=== PATIENT | female | born 1985 | race American Indian/Alaskan Native ===

== ENCOUNTER 2017-04-25 05:31 | Emergency (ER) | payer MEDICAID ==
--- NOTE | 2017-04-25 07:04 | XRay Report ---
FINAL REPORT EXAM: XR CHEST ROUTINE 2V HISTORY: cough TECHNIQUE: PA and lateral views of the chest were submitted. FINDINGS: The lungs are clear. The heart size is normal. Pleural fluid is not seen. The bones and soft tissues appear normal. IMPRESSION: Normal chest.
[2017-04-25] MEDS ORDERED: MOTRIN PO ONE (07:29)
[2017-04-25] MEDS ORDERED: TESSALON PERLES PO ONE (07:29)
--- NOTE | 2017-04-25 07:44 | Emergency Department Report ---
- General Chief Complaint: Upper Respiratory Infection Stated Complaint: COLD SX Time Seen by Provider: 04/25/17 07:29 Source: patient, family Mode of arrival: Ambulatory Limitations: No Limitations - History of Present Illness Initial Comments: This is a 31-year-old female nontoxic, well nourished in appearance, no acute signs of distress presents to the ED with c/o of productive cough, frontal sinus pain, rhinorrhea, nasal congestion x3 days. Patient describes productive cough as yellow mucus production. Patient agrees to sick contact with daughter with similar symptoms. Patient denies any recent travels, long car, recent hospital stays. Patient denies any calf pain or calf tenderness. Patient denies any chest pain, short of breath, fever, chills, nausea, vomiting, hemoptysis, numbness, tingling, headache or stiff neck. Allergies include codeine past medical history includes diabetes. MD Complaint: cough, rhinorrhea, nasal congestion, sinus pain -: days(s) (3) Severity: mild Severity scale (0 -10): 0 Consistency: constant Worsens With: nothing Context: sick contacts Associated Symptoms: rhinorrhea, nasal congestion, cough. denies: fever, chills , myalgias, diaphoresis, headache, sore throat, stiff neck, chest pain, shortness of breath, abdominal pain, nausea, vomiting, diarrhea, dysuria, rash, confusion, right sweats, weight loss, epistaxis, hoarseness, ear pain - Related Data Previous Rx's Medication Instructions Recorded Last Taken Type HYDROcodone/APAP 10-325 [[place] 1 each PO Q6HR PRN #20 tablet 04/08/14 Unknown Rx 10-325 mg TAB] Azithromycin [Zithromax Z-KADEN] 250 mg PO DAILY #6 tablet 07/29/14 Unknown Rx Benzonatate [Tessalon Perles] 100 mg PO Q8HR PRN #20 capsule 07/29/14 Unknown Rx Ibuprofen [Motrin 800 MG tab] 800 mg PO Q8H PRN #30 tablet 07/29/14 Unknown Rx Azithromycin [Zithromax TAB] 500 mg PO QDAY #5 tablet 01/23/15 Unknown Rx HYDROcodone/APAP 5-325 [[place] 1 each PO Q6HR PRN #12 tablet 01/23/15 Unknown Rx 5/325] Promethazine Dm [Phenergan Dm 5 ml PO Q6H PRN #120 ml 01/23/15 Unknown Rx 6.25/15 mg 5 ml] predniSONE [Deltasone] 20 mg PO TID #9 tab 01/23/15 Unknown Rx Dexamethasone [Decadron] 4 mg PO Q12H #8 tablet 01/26/15 Unknown Rx Ibuprofen [Motrin] 800 mg PO Q8HR PRN #30 tablet 01/26/15 Unknown Rx Pseudoephedrine (Nf) [Sudafed] 60 mg PO BID #20 tab 01/26/15 Unknown Rx traMADol [Ultram 50 MG tab] 50 mg PO Q6HR PRN #20 tablet 01/26/15 Unknown Rx Amoxicillin/K Clav Tab [Augmentin 1 tab PO Q12HR #20 tab 04/25/17 Unknown Rx 875 mg] Ibuprofen [Motrin] 600 mg PO Q8H PRN #30 tablet 04/25/17 Unknown Rx Allergies Allergy/AdvReac Type Severity Reaction Status Date / Time codeine AdvReac Unknown Verified 01/23/15 07:33 ED Review of Systems ROS: Stated complaint: COLD SX Other details as noted in HPI Constitutional: denies: chills, fever Eyes: denies: eye pain, eye discharge, vision change ENT: denies: ear pain, throat pain Respiratory: cough. denies: shortness of breath, wheezing Cardiovascular: denies: chest pain, palpitations Endocrine: no symptoms reported Gastrointestinal: denies: abdominal pain, nausea, diarrhea Genitourinary: denies: urgency, dysuria, discharge Musculoskeletal: denies: back pain, joint swelling, arthralgia Skin: denies: rash, lesions Neurological: denies: headache, weakness, paresthesias Psychiatric: denies: anxiety, depression Hematological/Lymphatic: denies: easy bleeding, easy bruising ED Past Medical Hx - Past Medical History Hx Hypertension: No Hx Diabetes: Yes (gestational) Hx Renal Disease: No Additional medical history: endometriosis. Uterine fibroids - Surgical History Additional Surgical History: laparscopic surgery for endometriosis. x1 - Social History Smoking Status: Never Smoker Substance Use Type: None - Medications Home Medications: Home Medications Medication Instructions Recorded Confirmed Last Taken Type HYDROcodone/APAP 10-325 [[place] 1 each PO Q6HR PRN #20 tablet 04/08/14 Unknown Rx 10-325 mg TAB] Azithromycin [Zithromax Z-KADEN] 250 mg PO DAILY #6 tablet 07/29/14 Unknown Rx Benzonatate [Tessalon Perles] 100 mg PO Q8HR PRN #20 capsule 07/29/14 Unknown Rx Ibuprofen [Motrin 800 MG tab] 800 mg PO Q8H PRN #30 tablet 07/29/14 Unknown Rx Azithromycin [Zithromax TAB] 500 mg PO QDAY #5 tablet 01/23/15 Unknown Rx HYDROcodone/APAP 5-325 [[place] 1 each PO Q6HR PRN #12 tablet 01/23/15 Unknown Rx 5/325] Promethazine Dm [Phenergan Dm 5 ml PO Q6H PRN #120 ml 01/23/15 Unknown Rx 6.25/15 mg 5 ml] predniSONE [Deltasone] 20 mg PO TID #9 tab 01/23/15 Unknown Rx Dexamethasone [Decadron] 4 mg PO Q12H #8 tablet 01/26/15 Unknown Rx Ibuprofen [Motrin] 800 mg PO Q8HR PRN #30 tablet 01/26/15 Unknown Rx Pseudoephedrine (Nf) [Sudafed] 60 mg PO BID #20 tab 01/26/15 Unknown Rx traMADol [Ultram 50 MG tab] 50 mg PO Q6HR PRN #20 tablet 01/26/15 Unknown Rx Amoxicillin/K Clav Tab [Augmentin 1 tab PO Q12HR #20 tab 04/25/17 Unknown Rx 875 mg] Ibuprofen [Motrin] 600 mg PO Q8H PRN #30 tablet 04/25/17 Unknown Rx ED Physical Exam - General Limitations: No Limitations General appearance: alert, in no apparent distress - Head Head exam: Present: atraumatic, normocephalic - Eye Eye exam: Present: normal appearance, PERRL, EOMI Pupils: Present: normal accommodation - ENT ENT exam: Present: normal exam, normal orophraynx, mucous membranes moist, TM's normal bilaterally, normal external ear exam - Neck Neck exam: Present: normal inspection, full ROM. Absent: tenderness, meningismus, lymphadenopathy, thyromegaly - Respiratory Respiratory exam: Present: normal lung sounds bilaterally. Absent: respiratory distress, wheezes, rales, rhonchi, stridor, chest wall tenderness, accessory muscle use, decreased breath sounds, prolonged expiratory - Cardiovascular Cardiovascular Exam: Present: regular rate, normal rhythm, normal heart sounds. Absent: irregular rhythm, systolic murmur, diastolic murmur, rubs, gallop - GI/Abdominal GI/Abdominal exam: Present: soft, normal bowel sounds. Absent: distended, tenderness, guarding, rebound, rigid, diminished bowel sounds - Rectal Rectal exam: Present: deferred - Extremities Exam Extremities exam: Present: normal inspection, full ROM, normal capillary refill. Absent: tenderness, pedal edema, joint swelling, calf tenderness - Back Exam Back exam: Present: normal inspection, full ROM. Absent: tenderness, CVA tenderness (R), CVA tenderness (L), muscle spasm, paraspinal tenderness, vertebral tenderness, rash noted - Neurological Exam Neurological exam: Present: alert, oriented X3, CN II-XII intact, normal gait, reflexes normal - Psychiatric Psychiatric exam: Present: normal affect, normal mood - Skin Skin exam: Present: warm, dry, intact, normal color. Absent: rash - Other Other exam information: Frontal sinus tenderness. ED Course Vital Signs 04/25/17 04/25/17 04/25/17 05:42 06:23 07:45 Temperature 98.4 F 98.4 F 100.2 F H Pulse Rate 101 H 101 H 95 H Respiratory 18 18 Rate Blood Pressure 131/91 Blood Pressure 131/91 137/98 [Right] O2 Sat by Pulse 98 100 Oximetry 04/25/17 07:46 Temperature Pulse Rate Respiratory 18 Rate Blood Pressure Blood Pressure [Right] O2 Sat by Pulse Oximetry - Reevaluation(s) Reevaluation #1: 04/25/17 07:42 Patient is speaking in full sentences with no signs of distress noted. ED Medical Decision Making - Medical Decision Making This is a 31-year-old female that presents with upper respiratory infection and sinusitis. Patient is stable and was examined by me. Chest x-ray has been obtained and dictated by radiologist with normal exam. Patient is notified of x -ray results with no questions noted. Due to patient having symptoms of upper respiratory infection and worsening I will treat patient with augmentin. Patient is above the >72 hour window for tamiflu. Patient was instructed to increase hydration, rest and take Motrin for fever episodes. Patient received motrin and tesslone perrls in the ED. Patient stated she has to go to work and cant wait to have vitals repeated to normal. Patient signed AMA form but I will still treat patient with augmetin. Patient was instructed Follow-up with a primary care doctor in 3-5 days or if symptoms worsen and continue return to emergency room as soon as possible. At time time of signing AMA, the patient does not seem toxic or ill in appearance. No acute signs of distress noted. Patient agrees to treatment plan of care. No further questions noted by the patient. Critical care attestation.: If time is entered above; I have spent that time in minutes in the direct care of this critically ill patient, excluding procedure time. ED Disposition Clinical Impression: Upper respiratory infection Qualifiers: URI type: unspecified URI Qualified Code(s): J06.9 - Acute upper respiratory infection, unspecified Sinusitis Qualifiers: Sinusitis location: frontal Chronicity: acute Recurrence: non-recurrent Qualified Code(s): J01.10 - Acute frontal sinusitis, unspecified Disposition: LEFT AGAINST MED ADVICE Is pt being admited?: No Does the pt Need Aspirin: No Condition: Stable Instructions: Amoxicillin/Clavulanate Potassium (By mouth), Sinusitis (ED), Upper Respiratory Infection (ED) Additional Instructions: Follow-up with a primary care doctor in 3-5 days or if symptoms worsen and continue return to emergency room as soon as possible. Increased rest, hydration and take Motrin for pain/fever. Prescriptions: Amoxicillin/K Clav Tab [Augmentin 875 mg] 1 tab PO Q12HR #20 tab Ibuprofen [Motrin] 600 mg PO Q8H PRN #30 tablet PRN Reason: Pain Referrals: PRIMARY MD ERI [Primary Care Provider] - 3-5 Days BETHANY MILLER MD [Staff Physician] - 3-5 Days [facility] [Outside] - 3-[address] [facility] [Outside] - 3-5 Days Forms: Work/School Release Form(ED), AMA Form
[2017-04-25 07:45] VITALS: BP 137/98
== END 2017-04-25 08:11 | disposition left against medical advice (07) ==
LOC: ED 05:31
DX: J06.9 Acute upper respiratory infection, unspecified (principal)
CPT/HCPCS: 71046

== ENCOUNTER 2017-06-12 07:16 | Emergency (ER) | payer MEDICAID ==
[2017-06-12 07:39] VITALS: BP 138/95
--- NOTE | 2017-06-12 08:29 | Emergency Department Report ---
- General Chief Complaint: Upper Respiratory Infection Stated Complaint: FLU LIKE SYMPTOMS/COUGH WITH CHEST PAIN Time Seen by Provider: 06/12/17 08:24 Source: patient Mode of arrival: Ambulatory Limitations: No Limitations - History of Present Illness Initial Comments: 32-year-old -[place] female comes in for complaint of cough for 1 week. She denies any fever chills no nausea no vomiting. She does admit to intermittent nasal congestion and sneezing and wheezing. Patient reports that she's tried taking [id number] Zyrtec Delisa's eyes all Claritin-D TheraFlu. Patient has no past medical history currently takes no medication or daily basis is allergic to codeine. MD Complaint: cough - Related Data Previous Rx's Medication Instructions Recorded Last Taken Type Benzonatate [Tessalon Perles] 100 mg PO Q8HR PRN #20 capsule 06/12/17 Unknown Rx Allergies Allergy/AdvReac Type Severity Reaction Status Date / Time codeine AdvReac Unknown Verified 01/23/15 07:33 ED Review of Systems ROS: Stated complaint: FLU LIKE SYMPTOMS/COUGH WITH CHEST PAIN Other details as noted in HPI Constitutional: denies: chills, fever Eyes: denies: eye pain, eye discharge, vision change ENT: denies: ear pain, throat pain Respiratory: cough, wheezing (not recently). denies: shortness of breath Cardiovascular: denies: chest pain, palpitations Endocrine: no symptoms reported Gastrointestinal: denies: abdominal pain, nausea, diarrhea Genitourinary: denies: urgency, dysuria, discharge Musculoskeletal: denies: back pain, joint swelling, arthralgia Skin: denies: rash, lesions Neurological: denies: headache, weakness, paresthesias Psychiatric: denies: anxiety, depression Hematological/Lymphatic: denies: easy bleeding, easy bruising ED Past Medical Hx - Past Medical History Previous Medical History?: Yes Hx Hypertension: No Hx Diabetes: Yes (gestational) Hx Renal Disease: No Additional medical history: endometriosis. Uterine fibroids - Surgical History Past Surgical History?: Yes Additional Surgical History: laparscopic surgery for endometriosis. x1 , Mass removalfrom left abd area - Social History Smoking Status: Never Smoker Substance Use Type: Alcohol - Medications Home Medications: Home Medications Medication Instructions Recorded Confirmed Last Taken Type Benzonatate [Tessalon Perles] 100 mg PO Q8HR PRN #20 capsule 06/12/17 Unknown Rx ED Physical Exam - General Limitations: No Limitations General appearance: alert, in no apparent distress - Head Head exam: Present: atraumatic, normocephalic - Eye Eye exam: Present: normal appearance - ENT ENT exam: Present: mucous membranes moist - Neck Neck exam: Present: normal inspection - Respiratory Respiratory exam: Present: normal lung sounds bilaterally. Absent: respiratory distress - Cardiovascular Cardiovascular Exam: Present: regular rate, normal rhythm. Absent: systolic murmur, diastolic murmur, rubs, gallop - GI/Abdominal GI/Abdominal exam: Present: soft, normal bowel sounds - Extremities Exam Extremities exam: Present: normal inspection - Back Exam Back exam: Present: normal inspection - Neurological Exam Neurological exam: Present: alert, oriented X3 - Psychiatric Psychiatric exam: Present: normal affect, normal mood - Skin Skin exam: Present: warm, dry, intact, normal color. Absent: rash ED Course Vital Signs 06/12/17 07:36 Temperature 98.4 F Pulse Rate 80 Respiratory 18 Rate Blood Pressure 138/95 O2 Sat by Pulse 98 Oximetry ED Medical Decision Making - Medical Decision Making Patient's been evaluated by this provider fast track. Patient has no fever cough that is dry. Discussed the patient placed on Tessalon Perles and for her to follow with her primary care provider if symptoms persist or gets worse. Patient verbalized understanding Critical care attestation.: If time is entered above; I have spent that time in minutes in the direct care of this critically ill patient, excluding procedure time. ED Disposition Clinical Impression: Cough Disposition: DC-01 TO HOME OR SELFCARE Is pt being admited?: No Does the pt Need Aspirin: No Condition: Stable Instructions: Antitussives (By mouth) Additional Instructions: Take cough medication as prescribed. If symptoms persist or gets worse follow- up with her primary care provider. Prescriptions: Benzonatate [Tessalon Perles] 100 mg PO Q8HR PRN #20 capsule PRN Reason: Cough Referrals: TRANG PIÑA MD [Referring] - 3-5 Days Forms: Work/School Release Form(ED)
== END 2017-06-12 08:57 | disposition home or self-care (01) ==
LOC: ED 07:16
DX: R05 Cough (principal); R09.81 Nasal congestion; R06.2 Wheezing; Z88.5 Allergy status to narcotic agent
CPT/HCPCS: 99282

== ENCOUNTER 2017-11-13 11:20 | Emergency (ER) | payer MEDICAID, OTHER ==
[2017-11-13 12:21] VITALS: BP 123/96
--- NOTE | 2017-11-13 14:18 | Emergency Department Report ---
Minor Respiratory - HPI Chief Complaint: Upper Respiratory Infection Stated Complaint: NECK,THROAT,HEAD PAIN Time Seen by Provider: 11/13/17 14:02 Duration: 3 Days Pain Location: Throat, Ear Severity: moderate Minor Respiratory: Yes Rhinorrhea, Yes Sore Throat, Yes Able to Tolerate Fluids , Yes Ear Pain, Yes Sick Contacts, No Cough, No Hemoptysis, No Chest Pain, No Shortness of Breath, No Fever Other History: This is a 32-year-old -[place] female presents with sore throat and congestion 3 days. 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 She started taking surtax with no improvement of symptoms. She also reports both ears clogged and achy. She went to her job this morning and they told her to get evaluated prior to return. She denies nausea or vomiting, fever, shortness of breath, chest pain, difficulty swallowing. ED Review of Systems ROS: Stated complaint: NECK,THROAT,HEAD PAIN Other details as noted in HPI Constitutional: denies: chills, fever ENT: ear pain, throat pain, congestion. denies: dental pain, hearing loss, epistaxis Respiratory: denies: cough, shortness of breath, wheezing Cardiovascular: denies: chest pain, palpitations Gastrointestinal: denies: abdominal pain, nausea, diarrhea Genitourinary: denies: urgency, dysuria, discharge Skin: denies: rash, lesions Neurological: denies: headache, weakness, paresthesias Psychiatric: denies: anxiety, depression ED Past Medical Hx - Past Medical History Hx Hypertension: No Hx Diabetes: No Hx Renal Disease: No Additional medical history: endometriosis. Uterine fibroids - Surgical History Additional Surgical History: laparscopic surgery for endometriosis. x1 , Mass removalfrom left abd area - Social History Smoking Status: Never Smoker Substance Use Type: Alcohol - Medications Home Medications: Home Medications Medication Instructions Recorded Confirmed Last Taken Type Benzonatate [Tessalon Perles] 100 mg PO Q8HR PRN #20 capsule 06/12/17 Unknown Rx Benzonatate [Tessalon Perle] 100 mg PO TID PRN #20 capsule 11/13/17 Unknown Rx Fluticasone [Flonase] 1 spray NS QDAY #1 bottle 11/13/17 Unknown Rx Lidocaine Viscous 2% 5 ml MM Q3H PRN #50 ml 11/13/17 Unknown Rx Minor Respiratory Exam - Exam General: Vital signs noted. No distress. Alert and acting appropriately. HEENT: Yes Pharyngeal Erythema (tonsils enlarged and erythematous w/o exudate), Yes Moist Mucous Membranes, Yes Rhinorrhea (turbinates mildly congested with clear discharge), No Pharyngeal Exudates, No Conjuctival Injection, No Frontal Tenderness, No Maxillary Tenderness Ear: Neither TM Bulge, Neither TM Erythema, Neither EAC Pain, Neither EAC Discharge Neck: Yes Supple, No Adenopathy Lungs: Yes Good Air Exchange, No Wheezes, No Ronchi, No Stridor, No Cough, No Labored Respirations, No Retractions, No Use of Accessory Muscles, No Other Abnormal Lung Sounds Heart: Yes Regular, No Murmur Abdomen: Yes Normal Bowel Sounds, No Tenderness, No Peritoneal Signs Skin: No Rash, No Edema Neurologic: Alert and oriented, no deficits. Musculoskeletal: Unremarkable. ED Course Vital Signs 11/13/17 12:18 Temperature 98.9 F Pulse Rate 74 Respiratory 18 Rate Blood Pressure 123/96 O2 Sat by Pulse 100 Oximetry ED Medical Decision Making - Lab Data Lab Results 11/13/17 Range/Units Unknown Group A Strep Rapid Negative (Negative) - Medical Decision Making Patient examined by me and stable. No distress noted. Rapid strep obtained and negative for strep. Vitals stable. Start lidocaine viscous, Flonase, and then vomits. Take Tylenol or ibuprofen for pain. Discussed plan with patient and he agreed with plan to treat outpatient. Discharged home. Return to work tomorrow. Follow up with PCP in 48-72 hours. Critical care attestation.: If time is entered above; I have spent that time in minutes in the direct care of this critically ill patient, excluding procedure time. ED Disposition Clinical Impression: Sore throat, Viral pharyngitis Disposition: DC-01 TO HOME OR SELFCARE Is pt being admited?: No Does the pt Need Aspirin: No Condition: Stable Instructions: Pharyngitis (ED) Additional Instructions: There is no need for bed rest or isolation. Use Tylenol or ibuprofen for symptoms of sore throat, headache, and fever. Return to work in 24 hours of taking antibiotics. Follow up with Primary Care Provider in 48-72 hours. Prescriptions: Benzonatate [Tessalon Perle] 100 mg PO TID PRN #20 capsule PRN Reason: Cough Fluticasone [Flonase] 1 spray NS QDAY #1 bottle Lidocaine Viscous 2% 5 ml MM Q3H PRN #50 ml PRN Reason: Pain , Severe (7-10) Referrals: [facility] [Outside] - 3-5 Days [facility] [Outside] - 3-5 Days [facility] [Outside] - 3-5 Days Forms: Work/School Release Form(ED) Time of Disposition: 15:44 Print Language: EQUATORIAL GUINEAN
== END 2017-11-13 15:52 | disposition home or self-care (01) ==
LOC: ED 11:20
DX: J20.9 Acute bronchitis, unspecified (principal); B34.9 Viral infection, unspecified
CPT/HCPCS: 87116; 87430; 99283

== ENCOUNTER 2019-02-28 06:37 | Emergency (ER) | payer OTHER ==
[2019-02-28 06:50] VITALS: BP 139/98
== END 2019-02-28 07:50 | disposition left against medical advice (07) ==
LOC: ED 06:37
DX: R42 Dizziness and giddiness (principal); Z53.21 Procedure and treatment not carried out due to patient leaving prior to being seen by health care provider